=== PATIENT | female | born 1975 | race Caucasian/White ===

== ENCOUNTER → 2019-01-21 | Outpatient (CLI) | payer OTHER ==
--- NOTE | 2019-01-21 12:05 | PCVCIMAG ---
APPROVED REPORT Study performed: 01/21/2019 10:27:26 Exam: Stress Echocardiogram Indication: Dyspnea , Palpitations , Chest pressure Patient Location: Echo lab Stress Nurse: Caryl Martinez RN Room #: 2 Status: routine Ht: 5 ft 3 in HR: 103 bpm BP: 148/82 mmHg Rhythm: Sinus Tachycardia Medical History Medical History: Thyroid disease, HTN Cardiac Risk Factors: HTN Previous Cardiac Procedures: none Pretest Chest Pain Characteristics: No chest pain Exercise History: Physically active Procedure The patient underwent an Exercise Stress Test using the Phil Protocol. Blood pressure, heart rate, and EKG were monitored. An Echocardiogram was performed by home theatre technician in four stages in quad fashion. At peak stress, four selected images were obtained and placed side by side with resting images for comparison. Stress Test Details Stress Test: Exercise stress testing was performed using a Phil protocol. HR Resting HR: 103 bpmMax Heart Rate (APMHR): 175 bpm Max HR Achieved: 179 bpmTarget HR (85% APMHR): 148 bpm % of APMHR: 102 Recovery HR: 111 bpm HR response to stress: Normal HR response to stress. Reasting heart rate is slightly elevated. BP Resting BP: 148/82 mmHg Max BP: 180/82 mmHg Recovery BP: 140/82 mmHg BP response to stress: Normal blood pressure response to stress. ECG Resting ECG: Sinus Tachycardia Stress ECG: Sinus Rhythm ST Change: Non-ischemic Arrhythmia: Rare PVC Recovery ECG: Sinus Tachycardia Recovery ST Change: Non-ischemic Recovery Arrhythmia: None Clinical Reason for Termination: Maximal effort Stress Symptoms: Dyspnea, Leg Fatigue Exercise duration: 7 min 31 sec Highest Stage Achieved: Stage 3: 3.4 mph at 14% grade. Exercise capacity: 10.4 METs Overall Exercise Capacity for Age: Poor Scale: Active Angina Score: None No complications. Stress ECG Conclusion The patient exercised according to the PHIL protocol for 7:31 mins; achieving a work level of 10.4 METS. The resting heart rate of 103 bpm jocelyn to a maximum heart rate of 179 bpm. This value represent 102% of the maximal, age-predicted heart rate. The resting blood pressure of 148/82 mmHg, jocelyn to a maximum blood pressure of 180/82 mmHg. The exercise test was stopped due to fatigue. Pre-Stress Echo The resting Echocardiogram showed normal left ventricular contractility with an estimated Ejection Fraction of about 55-60%. Normal wall motion in all segments on baseline images. Post-Stress Echo The stress Echocardiogram showed normal left ventricular contractility with an estimated Ejection Fraction of about 65-70%. Normal augmentation of wall motion in all segments on post stress images. Clinical No clinical or ECG evidence for ischemia. Conclusion Clinical Response: Non-ischemic Exercise Capacity: Below Average Stress ECG Response: Non-ischemic Stress Echo Images: Non-ischemic No clinical, EKG or echocardiographic evidence for ischemia. No echocardiographic evidence for exercise induced ischemia. Normal stress echocardiogram with maximal exercise stress. 1. low risk study <Conclusion> No clinical, EKG or echocardiographic evidence for ischemia. No echocardiographic evidence for exercise induced ischemia. Normal stress echocardiogram with maximal exercise stress. 1. low risk study
== END | disposition home or self-care (01) ==
LOC: PCVCIMAG 10:33
PROVIDERS: ATTEND Internal Medicine
DX: R00.2 Palpitations (principal); R06.09 Other forms of dyspnea; R07.89 Other chest pain
CPT/HCPCS: 93325; 93351